=== PATIENT | male | born 1940 | race Caucasian/White ===

== ENCOUNTER 2017-09-05 11:14 | Emergency (ER) | payer MEDICARE ==
[~2017-09-05] VITALS: Ht 182.9 cm; Wt 58.9 kg
[2017-09-05 11:24] VITALS: BP 125/79
== END 2017-09-05 12:19 | disposition home or self-care (01) ==
LOC: ED 11:38
DX: S01.81XD Laceration without foreign body of other part of head, subsequent encounter (principal); X58.XXXD Exposure to other specified factors, subsequent encounter; Z86.73 Personal history of transient ischemic attack (TIA), and cerebral infarction without residual deficits
CPT/HCPCS: 99281